=== PATIENT | female | born 1985 | race Two or more races ===

== ENCOUNTER 2022-08-07 12:49 | Emergency (ER) | payer MEDICAID, OTHER ==
[~2022-08-07] VITALS: Ht 154.9 cm; Wt 204.0 kg
[2022-08-07 14:03] LABS: Basophils # (auto) 0 10 ^3/uL (0-0.2); Basophils % (auto) 0.4 % (0.0-2.0); Eosinophils # (auto) 0.1 10 ^3/uL (0-0.8); Eosinophils % (auto) 1.5 % (0.0-7.0); Hematocrit 40.3 % (36.0-46.0); Hemoglobin 13.4 g/dL (12.2-16.2); Lymphocytes # (auto) 2.8 10 ^3/uL (0.4-5.4); Lymphocytes % (auto) 30.3 % (10.0-50.0); Mean Corpuscular Hemoglobin 29.6 pg (28.0-32.0); Mean Corpuscular Hgb Conc. 33.1 g/dL (32.0-36.0); Mean Corpuscular Volume 89.2 fL (80.0-100.0); Monocytes # (auto) 0.5 10 ^3/uL (0-1.3); Monocytes % (auto) 5.5 % (0.0-12.0); Neutrophils # (auto) 5.8 10 ^3/uL (1.6-8.6); Neutrophils % (auto) 62.3 % (37.0-80.0); Red Blood Cells 4.52 10^6/uL (4.0-5.20); Red Cell Distribution Width 13.1 % (11.8-14.3); White Blood Cell 9.3 10^3/uL (4.4-10.8)
[2022-08-07 14:06] LABS: Urine Bacteria FEW /hpf (None Seen); Urine Blood Negative /uL (Negative); Urine Mucus FEW (None Seen); Urine Specific Gravity 1.025 (1.001-1.035); Urine WBC 114 /hpf (0 - 5)
[2022-08-07 14:17] LABS: Albumin 3.4 g/dL (3.4-5.0); Calcium 8.6 mg/dL (8.5-10.1); Potassium 3.7 mmol/L (3.5-5.1)
[2022-08-07 14:20] LABS: BUN/Creatinine Ratio 23.8; Bilirubin, Total 0.5 mg/dL (0.2-1.0); Total Protein 7.1 g/dL (6.4-8.2)
[2022-08-07 16:24] VITALS: BP 126/74
[2022-08-07] MEDS ORDERED: NITR-87 PO (16:31)
== END 2022-08-07 16:45 | disposition home or self-care (01) ==
LOC: ER 12:49
DX: O36.4XX9 Maternal care for intrauterine death, other fetus (principal); O23.41 Unspecified infection of urinary tract in pregnancy, first trimester; N39.0 Urinary tract infection, site not specified; Z79.899 Other long term (current) drug therapy; Z3A.01 Less than 8 weeks gestation of pregnancy
CPT/HCPCS: 36415; 76801; 76817; 80053; 81001; 84702; 85025

== ENCOUNTER 2022-08-16 08:51 | Emergency (ER) | payer MEDICAID ==
[~2022-08-16] VITALS: Ht 152.4 cm; Wt 92.9 kg
[~2022-08-16 08:51] MED LIST: NITR-87 PO
[2022-08-16 09:39] LABS: Basophils # (auto) 0 10 ^3/uL (0-0.2); Basophils % (auto) 0.4 % (0.0-2.0); Eosinophils # (auto) 0.2 10 ^3/uL (0-0.8); Eosinophils % (auto) 2.1 % (0.0-7.0); Hematocrit 39.7 % (36.0-46.0); Hemoglobin 13.2 g/dL (12.2-16.2); Lymphocytes % (auto) 40.3 % (10.0-50.0); Mean Corpuscular Hemoglobin 29.9 pg (28.0-32.0); Mean Corpuscular Hgb Conc. 33.3 g/dL (32.0-36.0); Mean Corpuscular Volume 89.8 fL (80.0-100.0); Monocytes # (auto) 0.6 10 ^3/uL (0-1.3); Monocytes % (auto) 6.1 % (0.0-12.0); Neutrophils # (auto) 5.1 10 ^3/uL (1.6-8.6); Neutrophils % (auto) 51.1 % (37.0-80.0); Nucleated Red Blood Cells % 0.1 %; Red Blood Cells 4.42 10^6/uL (4.0-5.20); Red Cell Distribution Width 12.9 % (11.8-14.3); White Blood Cell 9.9 10^3/uL (4.4-10.8)
[2022-08-16 09:49] LABS: Albumin 3.3 g/dL (3.4-5.0); Calcium 8.5 mg/dL (8.5-10.1); Potassium 3.8 mmol/L (3.5-5.1)
[2022-08-16 09:53] LABS: BUN/Creatinine Ratio 23.7; Bilirubin, Total 0.2 mg/dL (0.2-1.0); Total Protein 6.9 g/dL (6.4-8.2)
[2022-08-16 13:34] VITALS: BP 129/76
== END 2022-08-16 13:35 | disposition home or self-care (01) ==
LOC: ER 08:51
DX: O36.4XX0 Maternal care for intrauterine death, not applicable or unspecified (principal); Z3A.08 8 weeks gestation of pregnancy
CPT/HCPCS: 36415; 76801; 80053; 84702; 85025

== ENCOUNTER 2025-09-27 18:11 | Emergency (ER) | payer MEDICAID ==
[~2025-09-27] VITALS: Ht 152.4 cm; Wt 89.2 kg
[2025-09-27 18:56] LABS: Hematocrit 44.0 % (36.0-46.0); Hemoglobin 15.4 g/dL (12.2-16.2); Mean Corpuscular Hemoglobin 31.3 pg (28.0-32.0); Mean Corpuscular Volume 89.7 fL (80.0-100.0); Nucleated Red Blood Cells % 0.1 %
--- NOTE | 2025-09-27 19:15 | ED.PDOC ---
CIRCUIT COURT CLERK HPI Comments HPI: 40-year-old female who came to ER for vaginal bleeding. Patient is a , miscarriage 3. 10 weeks gestation States earlier today she noted vaginal spotting when she was wiping. Denies any abdominal pain or cramping. Past Medical History: Denies Surgical History: Family History: Denies Personal and Social History: Denies YAN: VAG SPOTTING HPI: Poor Historian. 40-year-old female presents to emergency department for one episode of vaginal spotting when she was wiping. Denies any associated pain or cramps or trauma. Patient has not had any OB Gyne evaluation or ultrasound for this particular . REVIEW OF SYSTEMS: CONSTITUTIONAL: Denies acute: fever, diaphoresis, chills, generalized weakness. HEAD: Denies acute: headache, photophobia Eyes: Denies acute: Double vision, vision loss, eye pain, eye discharge. EARS: Denies acute: tinnitus, hearing loss, ear discharge, ear pain, THROAT: Denies acute: sore throat, swelling, difficulty swallowing , pain with swallowing, change in voice. NECK: Denies acute: neck pain, neck swelling, stiff neck. HEART: Denies acute : chest pain, palpitations, LUNGS: Denies acute: SOB, wheezing, cough, hemoptysis ABDOMEN: Denies acute: abdominal pain, Nausea, Vomiting, diarrhea, melena , hematemesis, hematochezia SKIN: Denies acute: rash, redness, lesions, itchiness. EXTREMITIES: Denies acute: calf pain, numbness, tingling, weakness, denies pain in extremity. Denies acute: Low back pain. Neuro: Denies acute: focal neurological deficit, motor or sensory focal neurological deficit, tremors, seizure like activity, confusion, dizziness, change in mental status, loss of bowel or bladder function, cauda equina like symptoms. : Denies acute: dysuria, hematuria, flank pain, increase in urinary frequency. PSYCH: Denies acute: hallucination, suicidal ideation, homicidal ideation. FEMALE: Denies acute: foul odor, unusual discharge. PHYSICAL EXAM: General: ----no----acute distress, awake and alert. Head: normocephalic, atraumatic. No raccoon's eyes, no crowder sign. Neck: supple, trachea is midline, no swelling. Throat: Normal phonation. Eyes:, no erythema, no purulent discharge, no proptosis, no icterus. Heart: regular rate, regular rhythm, no significant murmur appreciated. Lungs: no apparent respiratory distress, Able to speak in full sentences. No wheezing, no rhonchi, no crackles. No stridors Clear to auscultation bilaterally. Abdomen: non tender to palpation, non distended, soft, no guarding, no rebound, + bowel sounds. Neuro: Awake, Alert, oriented to name, self, situation, follows commands GCS=15. Speech is normal. Skin: no petechia, no purpura, no cyanosis, non-pale, not jaundice. Lower extremities: --no - Pitting edema no deformity, no focal swelling, no calf TTP. Makes eye contact. moves all four extremities. Face: no apparent facial droop. Ambulating in the ED independently. ED COURSE: DISCLAIMER: This medical document was created using an electronic medical record system with voice recognition software and computerized dictation system. Although this document has been carefully reviewed, there might still be some phonetic and typographical errors. Occasional wrong-word or "sound-alike" substitutions may have occurred due to the inherent limitations of voice recognition software. These areas are purely typographical due to imperfections of the software programs and do not reflect any compromise in the patient's medical care. Please read the chart carefully and recognize, using context, where these substitutions have occurred. Chief Complaint: Vaginal Bleed Time Seen by MD: 19:15 Reviewed Notes: Nurses Notes, Allergies Allergies: Coded Allergies: NO KNOWN ALLERGIES (Unverified , 08/07/22) Home Meds Active Scripts Cephalexin Monohydrate (Cephalexin) 500 Mg Cap, 500 MG PO Q8HR for 5 Days, #15 CAP Prov:LISA LUKE DO 09/27/25 Nitrofurantoin Monohydrate Mac (Macrobid) 100 Mg Cap, 100 MG PO BID, #20 CAP Prov:ELMA SHAY 08/07/22 Information Source: Patient Mode of Arrival: Ambulatory Past Medical History PAST MEDICAL HISTORY: Denies Surgical History: Denies all surgeries MERRY GO ROUND ATTENDANT History: No Pertinent MERRY GO ROUND ATTENDANT History 9 Para 5 Family History Family History: Reviewed,noncontributory to illness Social History Smoker: Non-Smoker Alcohol: Denies ETOH Use Drugs: Denies Drug Use Lives In: Home Was a procedure done? Was a procedure done?: No Differential Diagnosis (MERRY GO ROUND ATTENDANT) Vaginal Bleeding: - Complete, - Incomplete, - Inevitable, - Missed, - Threatened, Abruptio Placentae, Blood Loss Anemia, Cervicitis, Dysmenorrhea, Ectopic , Hormonal, Menorrhagia, Menometrorrhagia, Menstrual Bleeding, Myomatous Uterus, PID, Placenta Previa, Precipitous Hct, Trauma, UTI, Vaginitis, Other (Differential diagnosis includes but not limited to DU B, menorrhea, metromenorrhagia, neoplasm, coagulopathy,, trauma, miscarriage, placenta previa, placental abrupti on, ) X-Ray, Labs, Meds, VS Vital Signs Date Time Temp Pulse Resp B/P (MAP) Pulse Ox O2 Delivery O2 Flow Rate FiO2 09/27/25 22:12 75 17 98 Room Air 09/27/25 22:12 98.2 75 18 137/85 (102) 98 98.2 09/27/25 18:13 97.8 80 20 126/88 98 97.8 Lab Test 09/27/25 18:58 09/27/25 18:32 Range/Units Urine Color Light-orange Yellow Urine Clarity Turbid H Clear Urine pH 6.5 5.0-9.0 Urine Specific [place] 1.022 1.001-1.035 Urine Protein Trace H Negative Urine Ketones Negative Negative Urine Blood 3+ H Negative /uL Urine Nitrite Negative Negative Urine Bilirubin Negative Negative Urine Urobilinogen Normal Negative mg/dL Urine Leukocyte Esterase Negative Negative /uL Urine RBC 33 0 - 4 /hpf Urine Microscopic WBC 14 H 0-5 /HPF Urine Squamous Epithelial Cells Few <5 /hpf Urine Bacteria Few H None Seen /hpf Urine Mucus Few None Seen Urine Glucose 1+ H Normal mg/dL White Blood Count 9.6 4.4-10.8 10^3/uL Red Blood Count 4.91 4.0-5.20 10^6/uL Hemoglobin 15.4 12.2-16.2 g/dL Hematocrit 44.0 36.0-46.0 % Mean Corpuscular Volume 89.7 80.0-100.0 fL Mean Corpuscular Hemoglobin 31.3 28.0-32.0 pg Mean Corpuscular Hemoglobin Concent 35.0 32.0-36.0 g/dL Red Cell Distribution Width 13.1 11.8-14.3 % Platelet Count 318 140-450 10^3/uL Mean Platelet Volume 8.6 6.9-10.8 fL Neutrophils (%) (Auto) 58.9 37.0-80.0 % Lymphocytes (%) (Auto) 32.9 10.0-50.0 % Monocytes (%) (Auto) 5.9 0.0-12.0 % Eosinophils (%) (Auto) 2.0 0.0-7.0 % Basophils (%) (Auto) 0.3 0.0-2.0 % Neutrophils # (Auto) 5.7 1.6-8.6 10 ^3/uL Lymphocytes # (Auto) 3.2 0.4-5.4 10 ^3/uL Monocytes # (Auto) 0.6 0-1.3 10 ^3/uL Eosinophils # (Auto) 0.2 0-0.8 10 ^3/uL Basophils # (Auto) 0 0-0.2 10 ^3/uL Nucleated Red Blood Cells 0.1 % Sodium Level 138 136-145 mmol/L Potassium Level 3.6 3.5-5.1 mmol/L Chloride Level 101 98-107 mmol/L Carbon Dioxide Level 26 20-31 mmol/L Anion Gap 11 5-15 Blood Urea Nitrogen 8 L 9-23 mg/dL Creatinine 0.47 L 0.550-1.02 mg/dL Glomerular Filtration Rate Calc 124 >90 mL/min BUN/Creatinine Ratio 17.0 10.0-20.0 Serum Glucose 156 H 74-106 mg/dL Calcium Level 9.7 8.7-10.4 mg/dL Total Bilirubin 0.4 0.2-1.0 mg/dL Aspartate Amino Transferase (AST) 23 13-40 U/L Alanine Aminotransferase (ALT) 31 7-40 U/L Alkaline Phosphatase 92 46-116 U/L Total Protein 8.1 5.7-8.2 g/dL Albumin 4.7 3.2-4.8 g/dL Beta HCG, Quantitative 18585.2 H 1.5-4.2 mIU/mL [place] [address] Ph: [phone] DIAGNOSTIC IMAGING Diagnostic Imaging Report : [id number] Signed PATIENT: JACKIE YAN ACCT: [id number] UNIT: [id number] : 1985 LOC: ER ROOM / BED: / AGE / SEX: 40 / F ADM STATUS: REG ER SERVICE 182 ORDERING PHYSICIAN: LISA LUKE DO PROCEDURE(s): OB4US - OB ULTRASOUND COMP LESS 14WKS REASON: vag bleed ORDER NUMBER(s): [id number], ACCESSION NUMBER(s): [id number] OBSTETRIC ULTRASOUND PRIOR TO 14 WEEKS CLINICAL INDICATION: vag bleed TECHNIQUE: Multiple grayscale ultrasound images were obtained of the pelvis via transabdominal and transvaginal approach for obstetric evaluation. Limited color Doppler and spectral Doppler acquisitions were also obtained. COMPARISON: OB4US on DOS: 08/07/22, OBTVG on DOS: 08/07/22 FINDINGS: Uterus: 9.9 x 5.6 x 6.5 cm. There is a single intrauterine gestational sac is visualized measuring 2.2 cm. A pole is visualized measuring 0.4 cm compatible with an estimated gestational age of 6 weeks, 1 days. No cardiac activity is seen at this time. A normal yolk sac is present. Right adnexa: right ovary 2.9 x 2.0 x 2.2 cm. Normal arterial blood flow in the ovary. No right adnexal mass seen. Left adnexa: left ovary 2.3 x 2.1 x 1.5 cm. Normal arterial blood flow in the ovary. No left adnexal mass seen. Other: None IMPRESSION: 1. Single intrauterine gestational sac, pole, and yolk sac. No heart tones are seen. Based on the size of the gestational sac findings are suspicious although not diagnostic for failed 1st trimester . Follow-up by trending beta HCGs and follow-up transvaginal ultrasound in 7-14 days ATED BY: BILLY STARKS MD DICTATED DATE/TIME: 09/27/252013 SIGNED BY: BILLY STARKS MD SIGNED DATE/TIME: 09/27/252013 CC: Time of 1ST Reevaluation: 19:12 Reevaluation 1ST: Unchanged Patient Education/Counseling: Diagnosis, Treatment Family Education/Counseling: No Family Present Comments MDM: patient presented with the above HPI.--vaginal spotting in ----workup was initiated. patient was found with the above mentioned diagnosis. the following medications were ordered: please refer to order lists of meds and tests obtained by myself Dr. Luke. Patient ED course and VS have been stabilized. Patient has been reassessed in the ED and remained in a stable condition. Pertinent incidental findings were discussed with the patient and/or family. Patient/family voices understanding and is agreeable with plan. Patient has been observed in the ED adequate length of time to insure improvement/stability. Escalation of care considered: Consideration of escalation to observation or admission Patient was DISCHARGED home in a stable condition. All the reports of any imaging studies that were ordered by myself were reviewed by myself. Departure 1 Departure Time of Disposition: 19:42 Impression: Primary Impression: Vaginal bleeding during Additional Impressions: UTI in Threatened Disposition: 01 HOME / SELF CARE / HOMELESS Condition: Stable Additional Instructions: Additional instructions: Please read all instructions provided in this packet carefully. You MUST follow-up with your primary care/family doctor in 1 to 2 days. If you are unable to see your primary care/family doctor, please return to our emergency room for re-assessment and re-evaluation in 1 to 2 days. Return to the emergency room here in our facility or to the nearest ER [facility] if your symptoms change or worsen. CONSULTATIONS: you MUST Follow-up for consultation as soon as possible with: ---OB Gyne doctor in 1-2 days. You MUST call the consultants office yourself to make an appointment. You may need to arrange that through your insurance and/or your primary/family doctor. If you are unable to see the workforce management consultant in 1 to 2 days, you must return to our emergency room (or any other ER of your choice) for re-assessment and re- evaluation. Adequate fluid hydration. Although you have been discharged from the Emergency Department, this does not mean that you have a "clean bill of health". No definitive diagnosis for your symptoms has been made today. It is possible that you are in the process of deve loping a serious illness. This is why you must return to the ED without fail if any new or worsening symptoms develop. Repeat pelvic ultrasound in 4-5 days. Repeat beta-hCG levels in 48-72 hours. Your beta-hCG level today is------- Sep 27, 2025 [place] [address] [address].2 Absolute pelvic rest. Below is a copy of your radiological report for follow up: [place] [address] Ph: [phone] DIAGNOSTIC IMAGING Diagnostic Imaging Report : [id number] Signed PATIENT: JACKIE YAN ACCT: [id number] UNIT: [id number] : 1985 LOC: ER ROOM / BED: / AGE / SEX: 40 / F ADM STATUS: REG ER SERVICE 54 ORDERING PHYSICIAN: LISA LUKE DO PROCEDURE(s): OBTVG - OB TRANS VAGINAL US REASON: VAG BLEED ORDER NUMBER(s): [id number], ACCESSION NUMBER(s): [id number] OBSTETRIC ULTRASOUND PRIOR TO 14 WEEKS CLINICAL INDICATION: vag bleed TECHNIQUE: Multiple grayscale ultrasound images were obtained of the pelvis via transabdominal and transvaginal approach for obstetric evaluation. Limited color Doppler and spectral Doppler acquisitions were also obtained. COMPARISON: OB4US on DOS: 08/07/22, OBTVG on DOS: 08/07/22 FINDINGS: Uterus: 9.9 x 5.6 x 6.5 cm. There is a single intrauterine gestational sac is visualized measuring 2.2 cm. A pole is visualized measuring 0.4 cm compatible with an estimated gestational age of 6 weeks, 1 days. No cardiac activity is seen at this time. A normal yolk sac is present. Right adnexa: right ovary 2.9 x 2.0 x 2.2 cm. Normal arterial blood flow in the ovary. No right adnexal mass seen. Left adnexa: left ovary 2.3 x 2.1 x 1.5 cm. Normal arterial blood flow in the ovary. No left adnexal mass seen. Other: None IMPRESSION: 1. Single intrauterine gestational sac, pole, and yolk sac. No heart tones are seen. Based on the size of the gestational sac findings are suspicious although not diagnostic for failed 1st trimester . Follow-up by trending beta HCGs and follow-up transvaginal ultrasound in 7-14 days ATED BY: BILLY STARKS MD DICTATED DATE/TIME: 09/27/252013 SIGNED BY: BILLY STARKS MD SIGNED DATE/TIME: 09/27/252013 CC: e-Prescriptions Cephalexin Monohydrate (Cephalexin) 500 Mg Cap 500 MG PO Q8HR for 5 Days, #15 CAP Prov: LISA LUKE DO 09/27/25 Discharged With: Self Critical Care Note Critical Care Time?: No I personally scribed for LISA LUKE DO ([email or web address]) on 09/27/25 at 19:15. Electronically submitted by Adilson Huerta ([email or web address]). I personally scribed for LISA LUKE DO ([email or web address]) on 09/27/25 at 19:28. Electronically submitted by Adilson Huerta ([email or web address]). I personally scribed for LISA LUKE DO ([email or web address]) on 09/27/25 at 20:24. Electronically submitted by Adilson Huerta ([email or web address]). I personally scribed for LISA LUKE DO ([email or web address]) on 09/27/25 at 20:26. Electronically submitted by Adilson Huerta ([email or web address]). I personally scribed for LISA LUKE DO ([email or web address]) on 09/27/25 at 20:49. Electronically submitted by Adilson Huerta ([email or web address]). LISA LUKE DO Sep 27, 2025 19:15
[2025-09-27 19:16] LABS: Alanine Aminotransferase 31 U/L (7-40); Albumin 4.7 g/dL (3.2-4.8); Alkaline Phosphatase 92 U/L (46-116); Anion Gap 11 (5-15); BUN/Creatinine Ratio 17.0 (10.0-20.0); Calcium 9.7 mg/dL (8.7-10.4); Carbon Dioxide 26 mmol/L (20-31); Chloride 101 mmol/L (98-107); Potassium 3.6 mmol/L (3.5-5.1); Sodium 138 mmol/L (136-145); Total Protein 8.1 g/dL (5.7-8.2)
[2025-09-27 19:17] LABS: Bilirubin, Total 0.4 mg/dL (0.2-1.0); Blood Urea Nitrogen 8 mg/dL (9-23); Glucose 156 mg/dL (74-106)
[2025-09-27 19:24] LABS: Urine Protein, UAD TRACE (Negative)
--- NOTE | 2025-09-27 20:17 | DVH ---
OBSTETRIC ULTRASOUND PRIOR TO 14 WEEKS CLINICAL INDICATION: vag bleed TECHNIQUE: Multiple grayscale ultrasound images were obtained of the pelvis via transabdominal and transvaginal approach for obstetric evaluation. Limited color Doppler and spectral Doppler acquisitions were also obtained. COMPARISON: OB4US on DOS: 08/07/22, OBTVG on DOS: 08/07/22 FINDINGS: Uterus: 9.9 x 5.6 x 6.5 cm. There is a single intrauterine gestational sac is visualized measuring 2.2 cm. A pole is visualized measuring 0.4 cm compatible with an estimated gestational age of 6 weeks, 1 days. No cardiac activity is seen at this time. A normal yolk sac is present. Right adnexa: right ovary 2.9 x 2.0 x 2.2 cm. Normal arterial blood flow in the ovary. No right adnexal mass seen. Left adnexa: left ovary 2.3 x 2.1 x 1.5 cm. Normal arterial blood flow in the ovary. No left adnexal mass seen. Other: None IMPRESSION: 1. Single intrauterine gestational sac, pole, and yolk sac. No heart tones are seen. Based on the size of the gestational sac findings are suspicious although not diagnostic for failed 1st trimester . Follow-up by trending beta HCGs and follow-up transvaginal ultrasound in 7-14 days
[2025-09-27] MEDS ORDERED: CEPH500C PO (20:48)
[2025-09-27 22:12] VITALS: BP 137/85; PULSE 75; RESP 17; TEMP 98.2; O2SAT 98
== END 2025-09-27 22:12 | disposition home or self-care (01) ==
LOC: ER 18:11
DX: O20.0 Threatened abortion (principal); Z3A.10 10 weeks gestation of pregnancy; Z79.899 Other long term (current) drug therapy; Z98.890 Other specified postprocedural states
CPT/HCPCS: 36415; 76801; 76817; 80053; 81001; 84702; 85025; 86850; 86900; 86901

== ENCOUNTER 2025-09-30 08:31 | Emergency (ER) | payer MEDICAID ==
[~2025-09-30] VITALS: Ht 152.4 cm; Wt 89.0 kg
[~2025-09-30 08:31] MED LIST changes: +CEPH500C PO
--- NOTE | 2025-09-30 10:34 | ED.PDOC ---
SENIOR FIELD ENGINEER HPI Comments This is a 40 year old female presenting to the ED with chief complaint of vaginal bleeding during . Patient reports that she was seen on [place] for vaginal spotting and was told she is 6 weeks . Patient relays that her bleeding has worsened with clots being noted now. Patient is A3. Patient denies any N/V/D, abdominal pain, fever, chills, or vaginal discharge. Chief Complaint: Vaginal Bleed Time Seen by MD: 10:27 Reviewed Notes: Nurses Notes, Medications, Allergies Allergies: Coded Allergies: NO KNOWN ALLERGIES (Unverified , 08/07/22) Home Meds Active Scripts Cephalexin Monohydrate (Cephalexin) 500 Mg Cap, 500 MG PO Q8HR for 5 Days, #15 CAP Prov:LISA LUKE DO 09/27/25 Nitrofurantoin Monohydrate Mac (Macrobid) 100 Mg Cap, 100 MG PO BID, #20 CAP Prov:ELMA SHAY 08/07/22 Information Source: Patient Mode of Arrival: Ambulatory Timing: Days Prehospital treatment: None Severity: Moderate Bleeding Quality: Bright Red, Clotted Onset Of Mass/Bleeding: Spontaneous Sexual Activity: Control: None History of: Current Associated Signs and Symptoms: Vaginal Bleeding Past Medical History PAST MEDICAL HISTORY: Denies Surgical History: Denies all surgeries BEAUTY CONSULTANT History: No Pertinent BEAUTY CONSULTANT History 9 Para 5 AB 3 Family History Family History: Reviewed,noncontributory to illness Social History Smoker: Non-Smoker Alcohol: Denies ETOH Use Drugs: Denies Drug Use Lives In: Home Constitutional: denies: chills, diaphoresis, fatigue, fever, malaise, sweats, weakness, others EENTM: denies: blurred vision, double vision, ear bleeding, ear discharge, ear drainage, ear pain, ear ringing, eye pain, eye redness, hearing loss, mouth pain, mouth swelling, nasal discharge, nose bleeding, nose congestion, nose pain, photophobia, tearing, throat pain, throat swelling, voice changes, others Respiratory: denies: cough, hemoptysis, orthopnea, SOB at rest, shortness of breath, SOB with excertion, stridor, wheezing, others Cardiovascular: denies: chest pain, dizzy spells, diaphoresis, Dyspnea on exertion, edema, irregular heart beat, left arm pain, lightheadedness, palpitations, PND, syncope, others Gastrointestinal: denies: abdomen distended, abdominal pain, blood streaked bowels, constipated, diarrhea, dysphagia, difficulty swallowing, hematemesis, melena, nausea, poor appetite, poor fluid intake, rectal bleeding, rectal pain, vomiting, others Genitourinary: reports: abnormal vagina bleeding; denies: burning, dyspareunia, dysuria, flank pain, frequency, hematuria, incontinence, pain, , vagina discharge, urgency, others Neurological: denies: dizziness, fainting, headache, left sided numbness, left sided weakness, numbness, paresthesia, pre-existing deficit, right sided numbness, right sided weakness, seizure, speech problems, tingling, tremors, weakness, others Musculoskeletal: denies: back pain, gout, joint pain, joint swelling, muscle pain, muscle stiffness, neck pain, others Integumetry: denies: bruises, change in color, change in hair/nails, dryness, laceration, lesions, lumps, rash, wounds, others Allergic/Immunocompromised: denies: Difficulty Healing, Frequent Infections, Hives, Itching, others Hematologic/Lymphatic: denies: anemia, blood clots, easy bleeding, easy bruising, swollen glands, others Endocrine: denies: excessive hunger, excessive sweating, excessive thirst, excessive urination, flushing, intolerance to cold, intolerance to heat, unexplained weight gain, unexplained weight loss, others Psychiatric: denies: anxiety, bipolar disorder, depression, hopeless, panic disorder, schizophrenia, sleepless, suicidal, others All Other Systems: Reviewed and Negative Physical Exam General Appearance: Normal HEENT: Pharynx Normal Neck: Normal Inspection Respiratory: No Respiratory Distress Cardiovascular: No Edema Breast Exam: Deferred Gastrointestinal: Other (Gravid Abdomen) Genitalia: Deferred Pelvic: Deferred Rectal: Deferred Extremities: No pedal edema Neurologic: No Motor Deficits Cerebellar Function: NOT DONE Reflexes: NOT DONE Skin: Normal Color Lymphatic: NOT DONE Was a procedure done? Was a procedure done?: No Differential Diagnosis (BEAUTY CONSULTANT) Vaginal Bleeding: - Complete, - Incomplete, - Inevitable, - Threatened Mass / Lesion: Vaginitis - Candidal Vaginal Discharge: UTI X-Ray, Labs, Meds, VS Vital Signs Date Time Temp Pulse Resp B/P (MAP) Pulse Ox O2 Delivery O2 Flow Rate FiO2 09/30/25 08:35 98.0 109 13 136/78 98 98.0 Lab Test 09/30/25 11:08 09/30/25 10:53 Range/Units Urine Color Light-yellow Yellow Urine Clarity Clear Clear Urine pH 5.5 5.0-9.0 Urine Specific [place] 1.014 1.001-1.035 Urine Protein Negative Negative Urine Ketones 1+ H Negative Urine Blood 3+ H Negative /uL Urine Nitrite Negative Negative Urine Bilirubin Negative Negative Urine Urobilinogen Normal Negative mg/dL Urine Leukocyte Esterase Negative Negative /uL Urine RBC 4 0 - 4 /hpf Urine Microscopic WBC 2 0-5 /HPF Urine Squamous Epithelial Cells Few <5 /hpf Urine Bacteria Few H None Seen /hpf Urine Yeast (Budding) Few None Seen /hpf Urine Glucose 4+ H Normal mg/dL White Blood Count 11.7 H 4.4-10.8 10^3/uL Red Blood Count 4.92 4.0-5.20 10^6/uL Hemoglobin 15.1 12.2-16.2 g/dL Hematocrit 44.6 36.0-46.0 % Mean Corpuscular Volume 90.6 80.0-100.0 fL Mean Corpuscular Hemoglobin 30.6 28.0-32.0 pg Mean Corpuscular Hemoglobin Concent 33.8 32.0-36.0 g/dL Red Cell Distribution Width 13.0 11.8-14.3 % Platelet Count 291 140-450 10^3/uL Mean Platelet Volume 8.5 6.9-10.8 fL Neutrophils (%) (Auto) 81.5 H 37.0-80.0 % Lymphocytes (%) (Auto) 11.2 10.0-50.0 % Monocytes (%) (Auto) 5.6 0.0-12.0 % Eosinophils (%) (Auto) 1.4 0.0-7.0 % Basophils (%) (Auto) 0.3 0.0-2.0 % Neutrophils # (Auto) 9.6 H 1.6-8.6 10 ^3/uL Lymphocytes # (Auto) 1.3 0.4-5.4 10 ^3/uL Monocytes # (Auto) 0.7 0-1.3 10 ^3/uL Eosinophils # (Auto) 0.2 0-0.8 10 ^3/uL Basophils # (Auto) 0 0-0.2 10 ^3/uL Nucleated Red Blood Cells 0.1 % Sodium Level 135 L 136-145 mmol/L Potassium Level 3.6 3.5-5.1 mmol/L Chloride Level 100 98-107 mmol/L Carbon Dioxide Level 25 20-31 mmol/L Anion Gap 10 5-15 Blood Urea Nitrogen < 5 L 9-23 mg/dL Creatinine 0.52 L 0.550-1.02 mg/dL Glomerular Filtration Rate Calc 121 >90 mL/min BUN/Creatinine Ratio 9.6 L 10.0-20.0 Serum Glucose 205 H 74-106 mg/dL Calcium Level 9.1 8.7-10.4 mg/dL Beta HCG, Quantitative 6510.9 H 1.5-4.2 mIU/mL Time of 1ST Reevaluation: 11:25 Reevaluation 1ST: Unchanged Patient Education/Counseling: Diagnosis, Treatment Family Education/Counseling: No Family Present Departure 1 Departure Time of Disposition: 14:13 (Patient likely with threatened miscarriage. We will discharge patient home with outpatient follow up) Impression: Primary Impression: Threatened Disposition: 01 HOME / SELF CARE / HOMELESS Condition: Stable Referrals: LORENZO MCCLENDON DO Additional Instructions: You have a threatened miscarriage. Your beta hcg level today was 6510. Your ultrasound showed a at 6 weeks and 2 day but we could not find a heartbeat. You should follow up with OBGYN within three days to recheck your blood work. If your symptoms worsen or you have any other concerns then please return to the ER. Discharged With: Self Critical Care Note Critical Care Time?: No Stability Stability form required: No Heart Score Heart Score: Heart Score Response (Comments) Value History N/A 0 EKG N/A 0 Age N/A 0 Risk Factors N/A 0 Troponin N/A 0 Total 0 I personally scribed for CRISTINA GARRISON MD ([email or web address]) on 09/30/25 at 10:34. Electronically submitted by Daren Rodriguez ([email or web address]). CRISTINA GARRISON MD Sep 30, 2025 10:34
[2025-09-30 11:18] LABS: Urine Budding Yeast FEW /hpf (None Seen); Urine Protein, UAD Negative (Negative)
[2025-09-30 11:32] LABS: Hematocrit 44.6 % (36.0-46.0); Hemoglobin 15.1 g/dL (12.2-16.2); Mean Corpuscular Hemoglobin 30.6 pg (28.0-32.0); Mean Corpuscular Volume 90.6 fL (80.0-100.0); Nucleated Red Blood Cells % 0.1 %
[2025-09-30 11:40] LABS: Anion Gap 10 (5-15); Carbon Dioxide 25 mmol/L (20-31); Chloride 100 mmol/L (98-107); Potassium 3.6 mmol/L (3.5-5.1)
[2025-09-30 11:41] LABS: Calcium 9.1 mg/dL (8.7-10.4)
[2025-09-30 11:46] LABS: BUN/Creatinine Ratio 9.6 (10.0-20.0); Blood Urea Nitrogen < 5 mg/dL (9-23); Glucose 205 mg/dL (74-106); Sodium 135 mmol/L (136-145)
--- NOTE | 2025-09-30 13:37 | DVH ---
INDICATION: abdominal pain and vaginal bleeding TECHNIQUE: Multiple real-time grayscale transabdominal sonographic images along with color and duplex Doppler of the uterus and ovaries were obtained. COMPARISON: US OB ULTRASOUND COMP LESS 14WKS on DOS: 09/27/25, OB ULTRASOUND COMP LESS 14WKS on DOS: 08/16/22, OB ULTRASOUND COMP LESS 14WKS on DOS: 08/07/22 FINDINGS: The uterus measures 10.5 x 5.2 x 6.5 cm. The endometrial stripe measures contains a gestational sac and pole The right ovary measures 3 x 2 x 2.5 cm. Right ovarian volume is 7.6 mL. The left ovary measures 3.2 x 2.1 x 2.3 cm. Left ovarian volume is 7.8 mL. Normal Doppler signal from both ovaries. Gestational sac measures 2 cm consistent with 6 weeks 4 days. pole measures 0.35 cm consistent with 6 weeks 0 days. JANE 05/24/2026. No heart rate seen. Subsequent color and duplex Doppler interrogation of the ovaries demonstrated symmetric vascular flow to both ovaries, though this does not exclude the possibility of torsion due to the dual blood supply. IMPRESSION: 1. 6 week 2 day intrauterine with no heart rate noted at this time recommend follow-up study. 2. No significant change from 09/27/2025. pole and gestational sac consistent with 6 week 2 day intrauterine . No heart rate.
[2025-09-30 14:40] VITALS: BP 118/63; PULSE 96; RESP 17; TEMP 99.6; O2SAT 100
== END 2025-09-30 14:56 | disposition home or self-care (01) ==
LOC: ER 08:31
DX: O20.0 Threatened abortion (principal); Z3A.01 Less than 8 weeks gestation of pregnancy
CPT/HCPCS: 36415; 76801; 76817; 80048; 81001; 84702; 85025; 86900; 86901